=== PATIENT | female | born 1955 | race African-American/Black ===

== ENCOUNTER → 2017-02-24 | Day surgery (SDC) | payer MEDICARE, OTHER ==
[2017-02-24] VITALS (11 sets, daily range): BP systolic 94–103; BP diastolic 54–63
[~2017-02-24] VITALS: Ht 162.6 cm; Wt 79.8 kg
[~2017-02-24] MED LIST: B&C/1TAB3 PO; CALC667C4 PO; CALC667T2 PO; CEFAZOLIN 1000MG PREMIX 50 ML IV ONE; CHOL20004 PO; CINA30 PO; FENTANYL CITRATE/PF 50MCG/ML 2ML VIAL IV ONE; FENTANYL CITRATE/PF 50MCG/ML 2ML VIAL ONE; HEPARIN 1000 UNITS/ML 10ML ONE; IMMODIUM AD PO; IOHEXOL-300 100 ML BOTTLE ONE; LACT10SO6 MT; LIDOCAINE HCL 1% 20ML VIAL (Pyxis) INJ ONE; MIDO10TA PO; MIDO5TAB PO; PROP80CA2 PO; SODIUM BICARBONATE 4% (2.4MEQ) 5ML VIAL IV ONE; SUCR500T PO
[2017-02-24 12:32] LABS: EOSINOPHILS % 2.8 % (0.0-5.0); HEMATOCRIT. 36.7 % (36.0-48.0); HEMOGLOBIN. 11.7 g/dL (12.0-16.0); LYMPHOCYTES % 19.1 % (20.0-50.0); MEAN CORPUSCULAR HEMOGLOBIN 30.8 pg (28.0-32.0); MEAN CORPUSCULAR VOLUME 96.7 fL (81.0-99.0); MEAN PLATELET VOLUME 8.9 fl (7.4-10.4); MONOCYTES % 8.7 % (2.0-8.0); NEUTROPHILS % 68.4 % (40.0-76.0); PLATELET 51 x1000/uL (130-400); RED CELL DISTRIBUTION WIDTH 17.7 % (11.6-14.6)
[2017-02-24 12:41] LABS: INR 1.2; PARTIAL THROMBOPLASTIN TIME 29.1 sec (23.4-31.0); PROTHROMBIN TIME 12.5 sec (9.4-11.6)
== END | disposition home or self-care (01) ==
LOC: RAD 11:42
PROVIDERS: ATTEND Internal Medicine Nephrology
DX: T82.868A Thrombosis due to vascular prosthetic devices, implants and grafts, initial encounter (principal); N18.6 End stage renal disease; Z99.2 Dependence on renal dialysis; Z88.8 Allergy status to other drugs, medicaments and biological substances; Z79.2 Long term (current) use of antibiotics; Y83.8 Other surgical procedures as the cause of abnormal reaction of the patient, or of later complication, without mention of misadventure at the time of the procedure
CPT/HCPCS: 36415; 36904; 82947; 84132; 85025; 85610; 85730; C1725; C1766; C1769; C2630; J0690; J1644; J3010; J3490; J7050; Q9967; 36901; J7040

== ENCOUNTER → 2017-03-10 | Day surgery (SDC) | payer MEDICARE, OTHER ==
[2017-03-10] VITALS (10 sets, daily range): BP systolic 92–104; BP diastolic 56–63
[~2017-03-10] VITALS: Ht 162.6 cm; Wt 76.2 kg
[~2017-03-10] MED LIST changes: +CEFAZOLIN 1000MG PREMIX 50 ML IV NR; -CEFAZOLIN 1000MG PREMIX 50 ML IV ONE; +HEPARIN 5000 UNITS/ML VIAL IV ONE
[2017-03-10 09:23] LABS: BASOPHILS % 0.8 % (0.0-2.0); EOSINOPHILS % 1.3 % (0.0-5.0); HEMATOCRIT. 39.2 % (36.0-48.0); HEMOGLOBIN. 12.3 g/dL (12.0-16.0); LYMPHOCYTES % 14.7 % (20.0-50.0); MEAN CORPUSCULAR HEMOGLOBIN 29.7 pg (28.0-32.0); MEAN CORPUSCULAR VOLUME 94.6 fL (81.0-99.0); MEAN PLATELET VOLUME 8.9 fl (7.4-10.4); MONOCYTES % 9.4 % (2.0-8.0); NEUTROPHILS % 73.8 % (40.0-76.0); RED BLOOD CELL COUNT 4.14 mill/uL (4.2-5.4); RED CELL DISTRIBUTION WIDTH 18.3 % (11.6-14.6)
[2017-03-10 09:25] LABS: INR 1.2; PARTIAL THROMBOPLASTIN TIME 28.9 sec (23.4-31.0)
[2017-03-10 10:28] LABS: PLATELET 42 x1000/uL (130-400); PLATELET ESTIMATE MARKEDLY DECREASED
== END | disposition home or self-care (01) ==
LOC: RAD 08:32
PROVIDERS: ATTEND Internal Medicine Nephrology
DX: N18.6 End stage renal disease (principal); Z99.2 Dependence on renal dialysis; K72.90 Hepatic failure, unspecified without coma
CPT/HCPCS: 36415; 36904; 76937; 82947; 84132; 85025; 85610; 85730; C1725; C1766; C1769; C2630; J0690; J1644; J3010; J3490; J7050; Q9967; 36901

== ENCOUNTER → 2019-12-31 | Outpatient (CLI) | payer MEDICARE, OTHER ==
[~2019-12-31] MED LIST changes: -B&C/1TAB3 PO; -CALC667C4 PO; -CEFAZOLIN 1000MG PREMIX 50 ML IV NR; -FENTANYL CITRATE/PF 50MCG/ML 2ML VIAL IV ONE; -FENTANYL CITRATE/PF 50MCG/ML 2ML VIAL ONE; -HEPARIN 1000 UNITS/ML 10ML ONE; -HEPARIN 5000 UNITS/ML VIAL IV ONE; -IOHEXOL-300 100 ML BOTTLE ONE; -LIDOCAINE HCL 1% 20ML VIAL (Pyxis) INJ ONE; -MIDO10TA PO; -MIDO5TAB PO; +MIDO5TAB4 PO; -PROP80CA2 PO; -SODIUM BICARBONATE 4% (2.4MEQ) 5ML VIAL IV ONE; -SUCR500T PO
== END | disposition home or self-care (01) ==
LOC: LAB 07:45
PROVIDERS: ATTEND Internal Medicine Nephrology
DX: Z20.828 Contact with and (suspected) exposure to other viral communicable diseases (principal)
CPT/HCPCS: C9803; U0003

== ENCOUNTER → 2020-01-02 | Outpatient (CLI) | payer MEDICARE, OTHER | END | disposition home or self-care (01) | LOC: MAMMO 09:58 | PROVIDERS: ATTEND Internal Medicine Nephrology | DX: Z12.31 Encounter for screening mammogram for malignant neoplasm of breast (principal) | CPT/HCPCS: 77067 ==

== ENCOUNTER → 2022-03-03 | Outpatient (CLI) | payer MEDICARE, OTHER | END | disposition home or self-care (01) | LOC: RAD 12:07 | PROVIDERS: ATTEND Internal Medicine Nephrology | DX: M25.562 Pain in left knee (principal) | CPT/HCPCS: 73562 ==

== ENCOUNTER 2023-01-18 10:01 | Emergency (ER) | payer MEDICARE, OTHER ==
[~2023-01-18] VITALS: Ht 162.6 cm; Wt 102.0 kg
[2023-01-18 10:13] VITALS: BP 209/117; RESP 16; TEMP 98.1; O2SAT 99
[2023-01-18 11:22] LABS: HEMATOCRIT. 36.6 % (36.0-48.0); HEMOGLOBIN. 12.2 g/dL (12.0-16.0); MEAN CORPUSCULAR HEMOGLOBIN 29.3 pg (28.0-32.0); MEAN CORPUSCULAR HGB CONC 33.3 g/dL (31.0-37.0); MEAN CORPUSCULAR VOLUME 88.1 fL (81.0-99.0); MEAN PLATELET VOLUME 8.7 fl (7.4-10.4); PLATELET 148 x1000/uL (130-400); RED BLOOD CELL COUNT 4.16 mill/uL (4.2-5.4); RED CELL DISTRIBUTION WIDTH 15.3 % (11.6-14.6); WHITE BLOOD COUNT 10.8 x1000/uL (4.5-11.0)
[2023-01-18 11:24] LABS: DIFFERENTIAL COMMENT 1
[2023-01-18 11:28] LABS: CLARITY URINE CLOUDY (CLEAR); COLOR URINE ORANGE (YELLOW); GLUCOSE URINE 2+ (NEGATIVE); KETONES URINE 2+ (NEGATIVE); LEUKOCYTE ESTERASE URINE 2+ (NEGATIVE); NITRITE URINE POSITIVE (NEGATIVE); OCCULT BLOOD URINE 1+ (NEGATIVE); PROTEIN URINE 3+ (NEGATIVE); SPECIFIC GRAVITY URINE 1.035 (1.005-1.030)
[2023-01-18 11:30] VITALS: PULSE 88
[2023-01-18] MEDS ORDERED: CARVEDILOL 12.5MG TABLET PO ONE (11:30)
[2023-01-18 11:58] LABS: SQUAMOUS EPITHELIAL CELL URINE 2+ /lpf (RARE/1+)
[2023-01-18 12:01] LABS: MUCUS URINE 2+ /lpf (< = 2+); WBC URINE TNTC /hpf (0-2)
[2023-01-18 12:02] LABS: BACTERIA URINE 3+; RBC URINE 0-2 /hpf (0-2)
[2023-01-18 12:26] LABS: PLATELET ESTIMATE NORMAL
[2023-01-18 12:41] LABS: CALCIUM 9.7 mg/dL (8.7-10.4); CHLORIDE 103 mEq/L (98-107); CREATININE 0.9 mg/dL (0.6-1.0); GLUCOSE 193 mg/dL (70-105); POTASSIUM 4.1 mEq/L (3.5-5.1); PROTEIN TOTAL 6.4 g/dL (6.0-8.3); SODIUM 137 mEq/L (136-145); UREA NITROGEN BLOOD 11 mg/dL (9-23)
[2023-01-18 12:42] LABS: ALANINE AMINOTRANSFERASE 12 IU/L (10-49); ALBUMIN 4.2 g/dL (3.2-4.8); ASPARTATE AMINOTRANSFERASE < 8 IU/L (<34); BILIRUBIN TOTAL 1.8 mg/dL (0.1-1.0)
[2023-01-18 12:47] LABS: CARBON DIOXIDE 24 mEq/L (21-32)
[2023-01-18] MEDS ORDERED: CEFD300C3 MT (14:18)
== END 2023-01-18 15:07 | disposition home or self-care (01) ==
LOC: ER 10:43
DX: N12 Tubulo-interstitial nephritis, not specified as acute or chronic (principal); I10 Essential (primary) hypertension; E11.9 Type 2 diabetes mellitus without complications
CPT/HCPCS: 36415; 74176; 80053; 81003; 81025; 83605; 85025; 87186; 99284

== ENCOUNTER → 2023-04-05 | Outpatient (CLI) | payer MEDICARE, OTHER ==
[~2023-04-05] MED LIST changes: +CEFD300C3 MT
== END | disposition home or self-care (01) ==
LOC: RAD 12:30
PROVIDERS: ATTEND Internal Medicine Nephrology
DX: J18.9 Pneumonia, unspecified organism (principal)
CPT/HCPCS: 71046